=== PATIENT | male | born 1935 | race Caucasian/White ===

== ENCOUNTER 2021-09-13 12:10 | Outpatient (CLI) | payer MEDICARE, BC ==
[~2021-09-13 12:10] MED LIST: Magnevist 469MG/ML 20 ML VIAL ONE
[2021-09-13 13:22] LABS: Estimated GFR-MDRD - POC Greater than 90
== END 2021-09-13 12:11 | disposition home or self-care (01) ==
LOC: MRI 12:10
PROVIDERS: ATTEND Pain Medicine Pain Medicine
DX: M96.1 Postlaminectomy syndrome, not elsewhere classified (principal); M47.816 Spondylosis without myelopathy or radiculopathy, lumbar region; M47.817 Spondylosis without myelopathy or radiculopathy, lumbosacral region; M48.061 Spinal stenosis, lumbar region without neurogenic claudication; M48.07 Spinal stenosis, lumbosacral region; Z98.890 Other specified postprocedural states
CPT/HCPCS: 72158; 82565; A9579